=== PATIENT | male | born 1990 | race Caucasian/White ===

== ENCOUNTER 2019-12-19 19:14 | Emergency (ER) | payer OTHER, BC ==
[~2019-12-19] VITALS: Ht 185.4 cm; Wt 154.2 kg
[~2019-12-19 19:14] MED LIST: Crutch1 EACH MISC; Percocet 5-3251 EACH PO; Prednisone20 MG PO
[2019-12-19] MEDS ORDERED: ERYT1OIN RIGHTEYE (20:07)
[2019-12-19] MEDS ORDERED: Roxicodone5 MG PO (20:07)
== END 2019-12-19 20:28 | disposition home or self-care (01) ==
LOC: ER 19:14
DX: S05.01XA Injury of conjunctiva and corneal abrasion without foreign body, right eye, initial encounter (principal); X58.XXXA Exposure to other specified factors, initial encounter
CPT/HCPCS: 99283; A9270